=== PATIENT | male | born 1945 | race Caucasian/White ===

== ENCOUNTER → 2019-04-08 06:47 | Outpatient (CLI) | payer MEDICARE, OTHER, SELFPAY ==
--- NOTE | 2019-04-08 | DI.ECHO.S_ITS ---
[facility]---------+ [facility] +---------+ : : [address] [place] [address] : : : : [id number] : : : : Phone: [phone]+ Echocardiogram Report + + :Name: DANITA MOODY Study Date: 04/08/2019 Height: 67 in : :[facility] Weight: 161 lb : : Gender: Male BSA: 1.8 m2 : :: 1945 Age: 73 yrs BP: 118/68 mmHg: :Reason For Study: Cardiomyopathy : : Performed By: Madeline Painter : :Referring: [email or web address] : + + Interpretation Summary The ejection fraction is estimated to be 55-60%. There is mild aortic regurgitation. The right ventricular systolic pressure is estimated to be at least 24 mmHg based on an estimated right atrial pressure of 3 mm Hg. The ascending aorta is at the upper limits of normal in size. Procedure: A two-dimensional transthoracic echocardiogram with color flow and Doppler was performed. The study quality was technically adequate. Comparison is made with the echocardiogram of 05-23-13. The patient was in normal sinus rhythm during the exam. The patient had occasional PVCs during the exam. Left Ventricle: The left ventricle is normal in size. There is normal left ventricular wall thickness. The ejection fraction is estimated to be 55-60%. Left ventricular wall motion is normal. Diastolic parameters suggest probable normal left ventricular diastolic function and normal filling pressures. Right Ventricle: The right ventricle grossly appears normal in size with probable normal systolic function. Atria: The left atrial size is normal. Right atrial size is normal. The interatrial septum is intact with no evidence for an atrial septal defect. Mitral Valve: The mitral valve is normal in structure and function. There is trace mitral regurgitation. Aortic Valve: The aortic valve is trileaflet. The aortic valve opens well. There is mild aortic regurgitation. Compared to the prior echo study, there has been an increase in the severity of aortic regurgitation. Tricuspid Valve: The tricuspid valve is normal in structure and function. There is a trace or physiologic amount of tricuspid regurgitation. The right ventricular systolic pressure is estimated to be at least 24 mmHg based on an estimated right atrial pressure of 3 mm Hg. Pulmonic Valve: The pulmonic valve is not well seen, but is grossly normal. There is trace pulmonic regurgitation. Great Vessels: The aortic root is normal size. The ascending aorta is at the upper limits of normal in size. The aortic arch is normal in size. The IVC is of normal diameter and collapses greater than 50% with a sniff. This suggests a low right atrial pressure of 3 mm Hg. Pericardium/ Pleura There is no pericardial effusion. There is no pleural effusion. MMode/2D Measurements & Calculations LVIDd: 5.3 cm Ao root diam: 3.5 cm LVIDs: 3.5 cm Aortic Jxn: 3.1 cm FS: 33.0 % asc Aorta Diam: 3.7 cm EPSS: 0.89 cm Ao Arch Diam (Prox Trans): 2.8 cm IVSd: 0.80 cm LVPWd: 0.82 cm LV yang. diameter/BSA (cm/m^2): 2.9 LV sys. diameter/BSA (cm/m^2): 1.9 LA dimension: 3.7 cm RA long axis: 5.6 cm LA A2 area: 19.3 cm2 RA area: 19.6 cm2 LA A4 area: 18.6 cm2 RA vol: 58.5 ml LA length (vol): 5.4 cm RA : 31.7 ml/m2 LA vol: 56.5 ml IVC diam: 0.82 cm LA vol index: 30.6 ml/m2 RVDd major: 5.6 cm RVD1 (basal): 3.9 cm RVD2 (mid): 3.2 cm Doppler Measurements & Calculations Ao V2 max: 136.1 cm/sec MV E max jaguar: 46.8 cm/sec Ao V2 mean: 87.8 cm/sec MV A max jaguar: 60.8 cm/sec Ao max P.4 mmHg MV E/A: 0.77 Ao mean P.7 mmHg Med Peak E' Jaguar: 5.6 cm/sec Ao V2 VTI: 22.4 cm E/E' med: 8.4 Lat Peak E' Jaguar: 8.4 cm/sec E/E' lat: 5.6 E/e' average: 7.0 MV dec time: 0.22 sec MV P1/2t: 63.4 msec TR max jaguar: 231.1 cm/sec MV P1/2t max jaguar: 45.6 cm/sec TR max P.4 mmHg MVA(P1/2t): 3.5 cm2 PA V2 max: 90.1 cm/sec PA V2 mean: 52.6 cm/sec PA mean P.4 mmHg PA Accel Time: 0.08 sec Reading Physician:05:12 PM
== END ==
PROVIDERS: Family Provider Physician Assistant Medical; PCP Family Medicine; Visit Provider Physician Assistant
DX: I35.1 Nonrheumatic aortic (valve) insufficiency (principal); I42.8 Other cardiomyopathies
CPT/HCPCS: 93306

== ENCOUNTER → 2022-03-28 12:08 | Outpatient (CLI) | payer MEDICARE, OTHER, SELFPAY ==
--- NOTE | 2022-03-28 | DI.ECHO.S_ITS ---
[facility] +---------+ [facility] +---------+ : : [address] [place] : : : : [id number] : : : : Phone: [phone] +[phone]+ Echocardiogram Report + + :Name: DANITA MOODY Study Date: 03/28/2022 Height: 70 in : :[facility] ReadingLocation: Weight: 165 lb: : Gender: Male BSA: 1.9 m2 : :: 1945 Age: 76 yrs BP: 98/86 mmHg: :Reason For Study: ATRIAL FIBRILLATION : :Ordering Physician: BERNICE, : :YASMIN Performed By: Marlen Pimentel : :Referring: YASMIN LOCKHART : + + Interpretation Summary 1) Normal left ventricular thickness, size, wall motion, and systolic function (EF 55-60%). 2) Normal right ventricular size and function. 3) There is mild aortic regurgitation. 4) Compared to the Echo done 04/08/2019, no significant change. Procedure: A two-dimensional transthoracic echocardiogram with color flow and Doppler was performed. The study quality was technically adequate. Comparison is made with the echocardiogram of 04/08/2019. The patient was in sinus bradycardia with heart rates between 57-63 bpm during the exam. Left Ventricle: The left ventricle is normal in size and wall thickness. The ejection fraction is estimated to be 55-60%. Left ventricular systolic function appears normal without focal wall motion abnormalities. Right Ventricle: The right ventricle is normal in size and function. Atria: The left atrial size is normal. Right atrial size is normal. Interatrial septum is hypermobile. Mitral Valve: The mitral valve is normal in structure and function. There is borderline mitral valve prolapse. There is trace mitral regurgitation. Aortic Valve: The aortic valve is trileaflet. The aortic valve opens well. There is no aortic valve stenosis. There is mild aortic regurgitation. Tricuspid Valve: The tricuspid valve is normal in structure and function. There is mild tricuspid regurgitation. The right ventricular systolic pressure is estimated to be at least 20 mmHg based on an estimated right atrial pressure of 3 mm Hg. Pulmonic Valve: The pulmonic valve is not well seen, but is grossly normal. There is a trace or physiologic amount of pulmonic regurgitation. Great Vessels: The aortic root is normal size. The dimensions of the ascending aorta are normal. The IVC is of normal diameter and collapses greater than 50% with a sniff. This suggests a low right atrial pressure of 3 mm Hg. Pericardium/ Pleura There is no pericardial effusion. There is no pleural effusion. MMode/2D Measurements & Calculations LVIDd: 5.8 cm LVOT diam: 2.2 cm LVIDs: 3.6 cm Ao root diam: 3.4 cm FS: 36.8 % asc Aorta Diam: 3.5 cm IVSd: 0.80 cm Ao Arch Diam (Prox Trans): 2.9 cm LVPWd: 0.72 cm LV yang. diameter/BSA (cm/m^2): 3.0 LV sys. diameter/BSA (cm/m^2): 1.9 LA A2 area: 17.7 cm2 RA long axis: 4.3 cm LA A4 area: 12.0 cm2 RA area: 13.1 cm2 LA length (vol): 4.4 cm RA vol: 34.0 ml LA vol: 40.4 ml RA : 17.7 ml/m2 LA vol index: 21.0 ml/m2 IVC diam: 0.92 cm RVD1 (basal): 3.6 cm TAPSE: 1.7 cm Doppler Measurements & Calculations Ao V2 max: 132.8 cm/sec LVOT Max Jaguar: 95.5 cm/sec Ao V2 mean: 88.0 cm/sec LV V1 max P.6 mmHg Ao max P.1 mmHg LV V1 VTI: 16.1 cm Ao mean P.5 mmHg CHANTELL(I,D): 2.5 cm2 Ao V2 VTI: 23.1 cm CHANTELL(V,D): 2.6 cm2 sev ratio: 0.70 CHANTELL indexed to BSA (cm^2/m^2): 1.3 AI P1/2t: 817.9 msec AI dec slope: 91.5 cm/sec2 MV E max jaguar: 33.6 cm/sec TR max jaguar: 204.6 cm/sec MV A max jaguar: 47.5 cm/sec TR max P.7 mmHg MV E/A: 0.71 PA V2 max: 81.6 cm/sec Med Peak E' Jaguar: 6.7 cm/sec PA V2 mean: 58.9 cm/sec E/E' med: 5.0 PA mean P.6 mmHg Lat Peak E' Jaguar: 6.7 cm/sec PA pr(Accel): 27.6 mmHg E/E' lat: 5.0 E/e' average: 5.0 MV dec time: 0.35 sec SVLVOT): 58.8 ml Reading Physician:02:31 PM
== END ==
PROVIDERS: Family Provider Physician Assistant Medical; PCP Family Medicine; Referring Provider Internal Medicine Cardiovascular Disease; Visit Provider Internal Medicine Cardiovascular Disease
DX: I48.0 Paroxysmal atrial fibrillation (principal); I08.2 Rheumatic disorders of both aortic and tricuspid valves
CPT/HCPCS: 93306

== ENCOUNTER → 2022-04-19 07:31 | Outpatient (CLI) | payer MEDICARE, OTHER, SELFPAY ==
[2022-04-19 09:07] LABS: COVID19 -Nasal RAPID Negative (Negative)
--- NOTE | 2022-04-19 18:35 | DI.NM.S_ITS ---
DATE OF SERVICE: PROCEDURE PERFORMED: Perfusion study. INDICATION: Shortness of breath with underlying coronary artery disease, paroxysmal atrial fibrillation, and hyperlipidemia. RADIOPHARMACEUTICAL: 25.3 millicurie technetium-99m Myoview IV was injected at stress and 8.2 millicurie technetium-99m Myoview IV was injected at rest. CARDIAC STRESS: The patient underwent, initially, exercise perfusion study under the supervision of an attending staff. The patient tried to walk on a Christopher protocol for 2 minutes and 10 seconds and achieved only 57 percent of target heart rate. The patient had significant leg fatigue. Was not able to walk further. Test was discontinued. It was switched to pharmacological perfusion study. The patient achieved 4.6 METs of workload. Baseline blood pressure was 130/78 and peak blood pressure 138/80. Baseline rhythm was sinus bradycardia, rate about 55 beats per minute. Maximum heart rate during exercise was 81. During Lexiscan, the patient had minimal dyspnea and dizziness. Baseline rhythm was sinus. No ischemic changes seen. No new significant arrhythmia seen. RAW DATA: There is increased subdiaphragmatic activity. Hot spot seen near the inferior border and apical border of the heart. GATED STUDY: Stress LV ejection fraction 62 percent without any obvious wall motion abnormalities. Stress end-diastolic volume 132 mL. TID ratio 0.79, which is within normal limits. Lung/heart ratio 0.31, which is within normal limits. MYOCARDIAL PERFUSION SCAN: Stress supine, resting supine, and stress prone images were compared to each other. Stress supine and resting supine images revealed large size, moderate to severely decreased perfusion of inferior wall extending into the inferior apex. On resting supine, there was also mildly decreased perfusion of mid anterior wall. During stress prone images, there was significant improvement in inferior wall and inferoapical defect. However, there was remaining mildly decreased perfusion of inferior apex seen during stress prone images. No reversible ischemia. CONCLUSION: I will call this study likely a normal myocardial perfusion study with evidence of tissue attenuation artifact, which got significantly improved during stress prone images. There was a hot spot seen near the inferior border and inferior apex on raw images. No obvious wall motion abnormality. Stress left ventricular ejection fraction 62 percent. As far as perfusion scan is concerned, this is a low-risk myocardial perfusion. However, patient has very poor exercise tolerance. He could not walk much because of significant leg fatigue. Consider peripheral arterial disease evaluation. Mack Bowman - CARLOS MANUEL/nolvia/GERALDO doc#: [id number]/job#: [id number] dd: 04/19/2022 17:20:00 dt: 04/19/2022 18:19:00 DICTATING MD/COPIES TO: James Mancilla MD COPIES MNE: ELIZABETH;
== END ==
PROVIDERS: Family Provider Physician Assistant Medical; PCP Family Medicine; Referring Provider Internal Medicine Cardiovascular Disease; Visit Provider Internal Medicine Cardiovascular Disease
DX: R06.00 Dyspnea, unspecified (principal); I48.0 Paroxysmal atrial fibrillation; Z20.822 Contact with and (suspected) exposure to COVID-19
CPT/HCPCS: 78452; 87635; 93017; A9502; J2785

== ENCOUNTER → 2022-06-23 10:51 | Outpatient (CLI) | payer MEDICARE, OTHER, SELFPAY ==
[2022-06-23 12:41] LABS: Add Manual Diff / Slide Review NO; Basophils Absolute Auto 0 /uL (0-100); Basophils Percent Auto 0.4 % (0-2); Eosinophils Absolute Auto 100 /uL (0-450); Hematocrit 41.1 % (41-53); Lymphocytes Absolute Auto 1500 /uL (1100-4500); Lymphocytes Percent Auto 22.6 % (25-40); Mean Corpuscular Hemoglobin 31.3 PG (26-34); Monocytes Absolute Auto 600 /uL (0-900); Monocytes Percent Auto 9.6 % (3-14); Neutrophils Absolute Auto 4400 /uL (1500-7000); Neutrophils Percent Auto 65.4 % (50-75); Platelet Count 214 X10^3/uL (150-400); Red Blood Cell Count 4.47 X10^6/uL (4.5-5.9); Red Cell Distribution Width 13.7 % (11.6-14.8); White Blood Cell Count 6.7 X10^3/uL (4.5-11.0)
[2022-06-23 13:07] LABS: BUN Creatinine Ratio 25.8 (6-22); Blood Urea Nitrogen 23 mg/dL (9-20); Calcium 8.9 mg/dL (8.4-10.2); Carbon Dioxide 30 mmol/L (22-32); Chloride 103 mmol/L (98-107); Cholesterol 151 mg/dL (140-199); Estimated Glomerular Filt Rate > 60 mL/min (>60); Glucose 98 mg/dL (80-110); HDL Cholesterol 36 mg/dL (40-60); HEMOLYSIS 18 (0-50); LDL Cholesterol Calculated 100 mg/dL (<100); Potassium 4.1 mmol/L (3.4-5.1); Sodium 139 mmol/L (137-145); Triglycerides 76 mg/dL (35-150)
== END ==
PROVIDERS: Family Provider Physician Assistant Medical; PCP Family Medicine; Referring Provider Internal Medicine Cardiovascular Disease; Visit Provider Internal Medicine Cardiovascular Disease
DX: Z79.01 Long term (current) use of anticoagulants (principal); E78.5 Hyperlipidemia, unspecified; I95.1 Orthostatic hypotension
CPT/HCPCS: 36415; 80048; 80061; 85025

== ENCOUNTER → 2024-03-05 10:25 | Outpatient (CLI) | payer MEDICARE, OTHER, SELFPAY | PROVIDERS: Family Provider Physician Assistant Medical; PCP Family Medicine; Visit Provider Specialist | DX: N40.1 Benign prostatic hyperplasia with lower urinary tract symptoms (principal) | CPT/HCPCS: 87086 ==